=== PATIENT | female | born 1985 | race Caucasian/White ===

== ENCOUNTER 2016-04-25 16:10 | Inpatient (IN) | payer BC, OTHER ==
[~2016-04-25 16:10] MED LIST: AMOX500T PO; MMW SWISH-SWAL; PRENTAB62 PO
--- NOTE | 2016-05-25 11:57 | MH ---
cc: THADDEUS ALVAREZ DATE OF ADMISSION: 05/26/2016 ADMITTING DIAGNOSIS: 1. Term 2. Previous x3, low transverse type. 3. Maternal obesity 4. Multiparity. HISTORY OF PRESENT ILLNESS The patient is a 31-year-old white female para 3-0-0-3, LMP of 08/27/2015, EDC of 06/02/2016. Her preop course has been benign. Her past history is notable for three previous C-sections. She is now admitted for repeat with bilateral tubal interruption for undesired future fertility. PAST SURGICAL HISTORY: 1984, PE tubes. MEDICATIONS: Vitamins. ALLERGIES: NONE. TRANSFUSIONS: None. SOCIAL HISTORY: She is , homemaker, former teacher. Alcohol, tobacco and drugs: None. PHYSICAL EXAMINATION: Vital signs: Stable. Weight 300 pounds. Height is 5'6". HEENT: Normal. CHEST: Clear. HEART: Regular rate. BREASTS: Symmetrical. ABDOMEN: Gravid. EFW is 4000 grams. Cervix is closed. Rectal: Negative. ASSESSMENT: As above. PLAN: She is now admitted for , with bilateral tubal interruption. While in the office I explained the procedures, the risks, benefits, complications including but not limited to infection, bleeding and failure of the tubal. I advised her the tubal is permanent, non-reversal with small risk of failure. Ultrasound on 04/25/2016 showed vertex presentation, normal fluid, anterior placenta, female, GBS culture is positive. MD JANINE Caballero/LETI /11:14 AM /11:33 AM
[2016-05-26] VITALS (10 sets, daily range): BP systolic 92–126; BP diastolic 52–71; PULSE 20–97; RESP 16–20; TEMP 97.6–98.6
[2016-05-26] MEDS ORDERED: ceFAZolin INJ 1,000 MG VIAL ONE ×2 (06:56→06:57)
[2016-05-26] MEDS ORDERED: OXYTOCIN 10 UNIT/ML AMP ONE (06:57)
[2016-05-26 07:00] LABS: HEMATOCRIT 32.5 % (35.0-46.0); MEAN CELL VOLUME 80.5 FL (80.0-100.0); MEAN CORPUSCULAR HEMOGLOBIN 26.4 PG (27.0-34.0); MEAN CORPUSCULAR HGB CONC 32.9 % (32.0-36.0); PLATELET COUNT 186 TH/MM3 (150-450); RED BLOOD COUNT 4.03 MIL/MM3 (4.00-5.30); RED CELL DISTRIBUTION WIDTH 15.6 % (11.6-17.2); REVIEW FLAG FINAL; WHITE BLOOD COUNT 11.3 TH/MM3 (4.0-11.0)
[2016-05-26] MEDS ORDERED: CITRIC ACID-SODIUM CITRATE LIQ 30 ML UDC ONE (07:00)
[2016-05-26] MEDS ORDERED: CITRIC ACID-SODIUM CITRATE LIQ 30 ML UDC PO SCH (07:15)
[2016-05-26] MEDS: LACTATED RINGER'S 1000 ML IV SCH (07:15)
[2016-05-26] MEDS ORDERED: LACTATED RINGER'S 1000 ML IV ONE (07:15)
[2016-05-26 07:17] LABS: BACTERIA, URINE MOD /hpf; BLOOD, URINE NEG (NEG); CALCIUM OXALATE CRYSTALS,URINE MANY /hpf; COMMENT (UR) CULTURE INDICATED; CULTURE IF INDICATED CULTURE INDICATED; GLUCOSE,URINE NEG (NEG); KETONE, URINE 10 mg/dL (NEG); MUCUS URINE MANY /lpf (OCC); NITRITE,URINE NEG (NEG); SQUAMOUS EPITHELIAL CELL URINE 15 /hpf (0-5); URINE COLOR YELLOW (YELLW/STRAW)
[2016-05-26] MEDS ORDERED: DEXAMETHASONE SOD PHOS 4 MG/ML VIAL IV ONE (08:00)
[2016-05-26] MEDS ORDERED: MORPHINE SULFATE PF 5 MG/10 ML VIAL ONE (08:43)
[2016-05-26] MEDS ORDERED: fentaNYL CITRATE 250 MCG/5 ML AMP ONE (08:43)
[2016-05-26] MEDS ORDERED: KETOROLAC TROMETHAMINE 60 MG/2 ML (IM) VIAL IM PRN ×2 (08:45)
[2016-05-26] MEDS ORDERED: oxyCODONE/ACETAMINOPHEN 5 MG/325 MG TAB PO PRN (08:45)
[2016-05-26] MEDS ORDERED: OXYTOCIN 30 UNITS-500ML PREMIX 500 ML IV ONE (08:45)
[2016-05-26] MEDS ORDERED: ZOLPIDEM TARTRATE 5 MG TAB PO PRN (08:45)
[2016-05-26] MEDS ORDERED: MEASLES, MUMPS, RUBELLA VACCINE 0.5 ML VIAL SQ ONE (08:45)
[2016-05-26] MEDS ORDERED: SODIUM CHLORIDE 0.9% FLUSH 5 ML FLUSH IV PRN (08:45)
[2016-05-26] MEDS ORDERED: ONDANSETRON HCL 4 MG/2 ML VIAL IVP PRN (08:45)
[2016-05-26] MEDS ORDERED: SIMETHICONE 80 MG CHEWABLE TAB PO PRN (08:45)
[2016-05-26] MEDS: SODIUM CHLORIDE 0.9% FLUSH 5 ML FLUSH IV SCH (09:00)
[2016-05-26] MEDS ORDERED: ACETAMINOPHEN 1000 MG/100 ML VIAL IV ONE (09:09)
[2016-05-26] MEDS ORDERED: OXYTOCIN 30 UNITS-500ML PREMIX 500 ML ONE (09:09)
[2016-05-26] MEDS: ACETAMINOPHEN 1000 MG/100 ML VIAL IV SCH ×2 (09:11→16:13)
[2016-05-26] MEDS ORDERED: KETOROLAC TROMETHAMINE 60 MG/2 ML (IM) VIAL IM ONE (09:17)
[2016-05-26] MEDS ORDERED: EPIDURAL-NO SYSTEMIC NARCOTICS XX PRN (10:30)
[2016-05-26] MEDS ORDERED: EPIDURAL-DIPHENHYDRAMINE HCL 50 MG CAP PO PRN (10:30)
[2016-05-26] MEDS ORDERED: EPIDURAL-DIPHENHYDRAMINE HCL 50 MG/ML VIAL IV PUSH PRN (10:30)
[2016-05-26] MEDS ORDERED: EPIDURAL-DO NOT ADMINISTER ANTICOAGULANTS XX PRN (10:30)
[2016-05-26] MEDS ORDERED: EPIDURAL-NALOXONE HCL 0.4 MG/ML AMP IV PRN (10:30)
[2016-05-26] MEDS ORDERED: LACTATED RINGER'S 1000 ML INJ 1,000 ML IV SCH (13:00)
[2016-05-26] MEDS ORDERED: OXYTOCIN 30 UNITS-500ML PREMIX 500 ML IV PRN (18:15)
[2016-05-27] MEDS: ACETAMINOPHEN 1000 MG/100 ML VIAL IV SCH (00:52)
[2016-05-27] MEDS: LACTATED RINGER'S 1000 ML IV SCH (03:17)
[2016-05-27] MEDS: IBUPROFEN 600 MG TAB PO PRN ×3 (03:28→17:24)
[2016-05-27] MEDS: oxyCODONE/ACETAMINOPHEN 5 MG/325 MG TAB PO PRN ×5 (05:16→21:42)
[2016-05-27 06:19] LABS: AUTOMATED NEUTROPHIL # 7.9 TH/MM3 (1.8-7.7); BASOPHIL # 0.1 TH/MM3 (0-0.2); BASOPHIL % 0.6 % (0.0-2.0); EOSINOPHIL # 0.1 TH/MM3 (0-0.4); HEMATOCRIT 26.2 % (35.0-46.0); HEMO FLAGS DIFF FINAL; LYMPH % 13.3 % (9.0-44.0); LYMPHOCYTE # 1.4 TH/MM3 (1.0-4.8); MEAN CELL VOLUME 81.2 FL (80.0-100.0); MEAN CORPUSCULAR HEMOGLOBIN 27.3 PG (27.0-34.0); MEAN CORPUSCULAR HGB CONC 33.7 % (32.0-36.0); MONO % 7.9 % (0.0-8.0); NEUT % 77.2 % (16.0-70.0); PLATELET COUNT 150 TH/MM3 (150-450); RED BLOOD COUNT 3.22 MIL/MM3 (4.00-5.30); RED CELL DISTRIBUTION WIDTH 15.1 % (11.6-17.2); WHITE BLOOD COUNT 10.3 TH/MM3 (4.0-11.0)
[2016-05-27 06:50] LABS: BICARBONATE 23.5 MEQ/L (21.0-32.0); POTASSIUM 3.7 MEQ/L (3.5-5.1)
[2016-05-27 08:02] VITALS: BP 114/80; PULSE 102; RESP 16; TEMP 98.4
[2016-05-27] MEDS: DOCUSATE SODIUM 50 MG/SENNA 8.6 MG TAB PO PRN ×2 (09:54→21:41)
[2016-05-27 20:50] VITALS: BP 123/65; PULSE 101; RESP 16; TEMP 98.8
[2016-05-28] MEDS: IBUPROFEN 600 MG TAB PO PRN ×3 (02:11→18:10)
[2016-05-28] MEDS: oxyCODONE/ACETAMINOPHEN 5 MG/325 MG TAB PO PRN ×6 (02:12→22:04)
[2016-05-28 08:06] VITALS: BP 126/71; PULSE 101; RESP 20; TEMP 98.1
[2016-05-28] MEDS: SODIUM CHLORIDE 0.9% FLUSH 5 ML FLUSH IV SCH ×2 (09:00→21:00)
[2016-05-28] MEDS ORDERED: DIPHTH/TETANUS/ACEL PERTUSSIS (BOOSTER) 0.5 ML VIAL/PFS IM ONE (09:00)
--- NOTE | 2016-05-28 09:52 | MP ---
cc: THADDEUS ALVAREZ DATE OF SURGERY 05/26/16 PREOPERATIVE DIAGNOSIS 1. Term 2. Previous x3 3. Multiparity. 4. Obesity. POSTOPERATIVE DIAGNOSIS 1. Term 2. Previous x3 3. Multiparity. 4. Obesity. 5. Delivery. PROCEDURE Repeat low transverse section and bilateral tubal interruption. ANESTHESIA Spinal SURGEON Israel Alvarez MD PRESS CATCHER Gayatri Genao. ESTIMATED BLOOD LOSS About 500 mL FLUIDS 1.3 liter crystalloid. OBJECTIVE FINDINGS Following induction of adequate spinal anesthesia, the patient was prepped and draped supine on the operating table left lateral tilt position usual sterile fashion with the bladder being drained via Beckwith catheterization. The abdomen was opened through a Pfannenstiel incision using a knife to excise her old scar. The fascia opened transversely stripped from the muscles. Rectus muscle split in the midline and the peritoneum opened sharply without incident. The bladder flap was taken down sharply and retracted with a Amanda blade. The lower uterine segment was incised transversely with a knife and extended with blunt dissection. The membranes were ruptured with clear fluid. Baby was in LOT position. Vacuum was applied to the occiput and used to lift the head through the abdominal wound. Mouth was suctioned, cord clamped, cut after releasing the double nuchal cord which was loose. Cord sent for typing and sent out for donation and uterine cavity cleaned with laps. Uterus exteriorized and closed with two layers of running suture, first with a with running locking stitch of 0 Vicryl, second running with imbricating stitch of 0 Vicryl. The patient reaffirmed desired tubal. Uterine was packed with a lap. Left fallopian tube was traced to normal left ovary. A window made in mesosalpinx. The vascular pedicle of the fimbriae doubly clamped with Concha's proximal to the hemostat. The distal tube fimbriae excised for permanent study. The vascular pedicle , was ligated with two free ties of 2-0 chromic. The proximal tube ligated with 2-0 chromic and buried in the uterine fundus in Hugo fashion with a second suture used to further affix the tube to the uterine fundus, same on the right. Posterior inspection was normal. The uterus placed back in cavity. Irrigation was performed, no bleeding was evident. The bladder flaps were closed with running stitch of 3-0 Vicryl. All instruments removed. Counts were correct. The anterior peritoneum closed with running stitch of 2-0 Vicryl. Fascia closed with running #1 PDS corner to midline and tied, subcu with 3-0 Vicryl and skin with running subcuticular 3-0 Monocryl. Dermabond applied. All counts correct and the patient was awaken and taken to recovery room in good condition. MD JANINE Caballero/ /8:21 AM /9:32 AM [email or web address]
[2016-05-28] MEDS: DOCUSATE SODIUM 50 MG/SENNA 8.6 MG TAB PO PRN (10:05)
[2016-05-28] MEDS: LACTATED RINGER'S 1000 ML IV SCH (19:15)
[2016-05-28 20:44] VITALS: BP 132/73; PULSE 94; RESP 18; TEMP 98.3
[2016-05-29] MEDS: LACTATED RINGER'S 1000 ML IV SCH ×2 (01:55→08:35)
[2016-05-29] MEDS: IBUPROFEN 600 MG TAB PO PRN ×2 (02:37→10:55)
[2016-05-29] MEDS: DOCUSATE SODIUM 50 MG/SENNA 8.6 MG TAB PO PRN (02:37)
[2016-05-29] MEDS: oxyCODONE/ACETAMINOPHEN 5 MG/325 MG TAB PO PRN ×3 (02:38→10:56)
[2016-05-29] MEDS ORDERED: OXYC1TAB63 PO (07:51)
--- NOTE | 2016-05-29 07:52 | HHI.DCPOC ---
Discharge Care Plan Report Symptoms to Your Doctor -Temperate above 100.5 degrees -Redness, of incision or excessive or foul smelling drainage -Unusual pain or calf pain -Increased vaginal bleeding -Painful or difficulty urinating -Feelings of extreme sadness or anxiety after 2 weeks Goals to Promote Your Health * To prevent worsening of your condition and complications * To maintain your health at the optimal level Directions to Meet Your Goals Take your medications as prescribed Follow your dietary instruction Follow activity as directed Ensure plenty of rest for recovery Drink fluids for hydration Keep your appointments as scheduled Take your immunizations and boosters as scheduled If your symptoms worsen call your PCP, if no PCP go to Urgent Care Center or Emergency Room Smoking is Dangerous to Your Health. Avoid second hand smoke Call the 24-hour crisis hotline for domestic abuse at Jerzy Ly MD May 29, 2016 07:52
[2016-05-29 08:05] VITALS: BP 110/79; PULSE 93; RESP 19; TEMP 98.8
[2016-05-29] MEDS: SODIUM CHLORIDE 0.9% FLUSH 5 ML FLUSH IV SCH (09:00)
--- NOTE | 2016-06-01 21:43 | MD ---
cc: THADDEUS ALVAREZ ADMISSION DATE: 05/26/2016 DISCHARGE DATE: 05/29/2016 ADMISSION DIAGNOSES Term , previous x3, multiparity, obesity. DISCHARGE DIAGNOSES Term , previous x3, multiparity, obesity. Delivered. PROCEDURE Repeat low transverse section and bilateral tubal interruption on 05/26/2016. HISTORY OF PRESENT ILLNESS The patient is a 41-year-old , white female para 3-0-0-3 with an EDC of 06/03/2016 by dates and ultrasound. Her course was benign. Her past medical history notable for three previous C-sections and maternal obesity. Her labs included Rh negative, VDRL nonreactive, rubella immune, rubeola immune, WRIGHT negative, Pap negative, glucose screen was normal. Strep culture was positive. On the day admission she underwent a repeat section and bilateral tubal interruption with delivery of a viable vigorous female, Apgars were 8 and 9, 8 pounds, 13 ounces. The baby was named Etelvina and she was breast feeding. did well, discharged home in excellent condition on 05/29/2016. Her pre and postop labs were normal. The baby is Rh negative so RhoGAM is indicated. She will return to see me in one week. She will call for any abnormal symptoms. She was given a prescription for Percocet 5, one to two p.o. q.4h as needed for pain, #60. MD JANINE Caballero/KK /8:06 AM /9:33 PM
== END 2016-05-29 12:17 | disposition home or self-care (01) | DRG 766 ==
LOC: H2EB 05-26 05:34 → H1EA 05-26 10:01
PROVIDERS: ADMIT Obstetrics & Gynecology; ATTEND Obstetrics & Gynecology
PROC: 10D00Z1 Extraction of Products of Conception, Low, Open Approach (ICD-10-PCS; principal; 2016-05-26)
PROC: 0UL70ZZ Occlusion of Bilateral Fallopian Tubes, Open Approach (ICD-10-PCS; 2016-05-26)
DX: O34.211 Maternal care for low transverse scar from previous cesarean delivery (principal); E66.9 Obesity, unspecified; O99.214 Obesity complicating childbirth; O99.824 Streptococcus B carrier state complicating childbirth; Z37.0 Single live birth; Z3A.37 37 weeks gestation of pregnancy; O69.81X0 Labor and delivery complicated by cord around neck, without compression, not applicable or unspecified; Z30.2 Encounter for sterilization
CPT/HCPCS: 59025; 80048; 81001; 85025; 85027; 86850; 86900; 86901; 87086; 88302; 90715; J0131; J0690; J1100; J1885; J2274; J2590; J3010; J7120

== ENCOUNTER → 2016-12-23 | Outpatient (CLI) | payer BC ==
[~2016-12-23] MED LIST changes: -AMOX500T PO; -MMW SWISH-SWAL; +OXYC1TAB63 PO
== END ==
LOC: CPRE 12:45
PROVIDERS: ATTEND Obstetrics & Gynecology
DX: N92.0 Excessive and frequent menstruation with regular cycle (principal)

== ENCOUNTER → 2016-12-29 | Day surgery (SDC) | payer BC ==
[~2016-12-29] VITALS: Ht 167.6 cm; Wt 139.1 kg
[~2016-12-29] MED LIST changes: +*morphine SULFATE 8 MG/ML PERIprocedure ONLY ONE; +ACETAMINOPHEN 1 GM/100 ML IV SCH; +CHLORHEXIDINE GLUCONATE 2 % 1 PACK (2 CLOTHS) TOPICAL PRN; +DEXAMETHASONE SOD PHOS 4 MG/ML VIAL ONE; +DO NOT ADM ANY ANTICOAGULANT DRUGS PRN; +FAMOTIDINE 20 MG/2 ML VIAL ONE; +INSULIN HUMAN REGULAR 1,000 UNITS/10 ML VIAL SQ PRN; +KETOROLAC TROMETHAMINE 30 MG/ML (IVP) VIAL IV PUSH ONE; +LACTATED RINGER'S 1000 ML IV PRN; +LIDOCAINE HCL 1% PF 5 ML AMPULE OTHER ONE; +METOCLOPRAMIDE HCL 10 MG/2 ML VIAL IV PRN; +METOPROLOL TARTRATE 25 MG TAB PO PRN; +MIDAZOLAM HCL 2 MG/2 ML VIAL ONE; +ONDANSETRON HCL 4 MG/2 ML VIAL IV PUSH ONE; -OXYC1TAB63 PO; +POVIDONE IODINE 5% (ANTISEPSIS KIT) 4 APPLICATIONS EACH NARE PRN; -PRENTAB62 PO; +PROPOFOL 200 MG/20 ML AMP IV ONE; +SODIUM CHLORID 0.9% 500 ML IV PRN; +ceFAZolin 1,000 MG/NS 100 ML IV SCH; +oxyCODONE/ACETAMINOPHEN 5 MG/325 MG TAB PO PRN
--- NOTE | 2016-12-29 08:20 | MP ---
cc: THADDEUS ALVAREZ DATE OF SURGERY 12/29/2016 PREOPERATIVE DIAGNOSIS Menorrhagia. POSTOPERATIVE DIAGNOSIS Menorrhagia. PROCEDURE Hysteroscopy with NovaSure ablation. ANESTHESIA General LMA. ESTIMATED BLOOD LOSS About 20 cc FLUIDS 0.5 liter crystalloid. OBJECTIVE FINDINGS Following the induction of adequate general LMA anesthesia, the patient was prepped and draped supine on the operating table in the dorsal lithotomy position in the usual sterile fashion with the bladder drained with in and out catheterization. Exam under anesthesia revealed normal sized and shape anterior uterus, no adnexal masses. A heavy weighted speculum was placed in the posterior fornix of the vagina, the anterior lip of the cervix was grasped with single-tooth tenaculum. The cervix sounded to 2.5 cm internal os and 9 cm to the fundus. The cervix was dilated to a #20 Hanks dilator. The NovaSure wand was then deployed for a cavity length was 6.5 cm and a cavity width of 3 cm. With the patient in the Trendelenburg position, the device cavity check was normal, enabled and complete. The NovaSure wand was removed intact. The hysteroscope was passed and revealed a completed procedure. The instruments are now removed, tenaculum site sutured with 3-0 chromic and good hemostasis. All counts were correct. The patient was taken down from the stirrups; she was awakened and taken to the recovery room in good condition. MD JANINE Caballero/SSB /8:07 AM /8:11 AM
[2016-12-29 09:35] VITALS: BP 121/69; PULSE 52; RESP 20; TEMP 97.5; O2SAT 98
--- NOTE | 2016-12-29 13:50 | EKG ---
Date Performed: 12/29/2016 Time Performed: 06:16:40 PTAGE: 31 years EKG: Sinus rhythm . Normal ECG NO PREVIOUS TRACING DOCTOR: Jeanmarie Mcgovern Interpretating Date/Time 12/29/2016 13:47:44
--- NOTE | 2016-12-30 08:38 | MH ---
cc: THADDEUS ALVAREZ M.D. DATE OF ADMISSION 12/29/2016 This is a re-dictation the patient date of admission is 12/29/2016. DIAGNOSIS Menorrhagia HISTORY OF PRESENT ILLNESS This is a 31-year-old white female para 4-0-0-4 has had persistent vaginal bleeding since her last in May of 2016. Her laboratory studies have been normal. Pap smear was normal. Endometrial biopsy was benign. Ultrasound was normal. She is now admitted for ablation. PAST MEDICAL HISTORY Previous surgery: 1. She had four C-sections, the last with a tubal in May of 2016. 2. She had PE tubes in 1984. MEDICATIONS Vitamins ALLERGIES None TRANSFUSIONS None SOCIAL HISTORY She is , a homemaker. Alcohol, tobacco and drugs are none. FAMILY HISTORY Noncontributory PHYSICAL EXAM This is an elderly white female in no distress. VITAL SIGNS: Her vital signs are stable. HEENT: Exam is normal. CHEST: Clear. HEART: Regular rate. BREASTS: The breasts are symmetrical. ABDOMEN: Benign. PELVIC: Normal external genitalia and BUS. Vagina is normal. Cervix normal. Uterus is normal size and shape. Adnexa nonpalpable. ASSESSMENT As above. PLAN She is now admitted for ablation. While in the office, I explained the procedures, the risks, benefits, and complications, and the chance of failure and possible need for hysterectomy is explained and accepted. The patient would like to proceed. MD JANINE Caballero/ROBERT /8:24 AM /8:31 AM
== END | disposition home or self-care (01) ==
LOC: HSDC 05:30
PROVIDERS: ATTEND Obstetrics & Gynecology
DX: N92.0 Excessive and frequent menstruation with regular cycle (principal); E66.9 Obesity, unspecified; Z68.42 Body mass index [BMI] 45.0-49.9, adult; Z01.810 Encounter for preprocedural cardiovascular examination
CPT/HCPCS: 00952; 58563; 93005; 94002; J0131; J0690; J1100; J1885; J2250; J2270; J2405; J3010; J7120

== ENCOUNTER 2017-11-25 10:39 | Observation (INO) ==
--- NOTE | 2017-11-24 12:58 | MH ---
cc: Jerzy Ly MD DATE OF ADMISSION: 11/24/2017 ADMITTING DIAGNOSES: 1. Menorrhagia. 2. Dysmenorrhea. HISTORY OF PRESENT ILLNESS: The patient is a 32-year-old white female, para 4-0-0-4, has had persistent vaginal bleeding since her last in 05/2016. Her Pap smears were normal. Endometrial biopsy was normal. Ultrasound was normal. She had NovaSure ablation on 12/29/2016, has continued to bleed heavily, has failed to respond to OCPs. Her pelvic ultrasound from 08/03/2017 showed a fundal fibroid and the ovaries are normal. She is now admitted for hysterectomy. ADDITIONAL PAST SURGICAL HISTORY: She had 4 C-sections, the last with a tubal in 05/2016. She had PE tubes in 1984. MEDICATIONS: Vitamins and OCPs. ALLERGIES: NONE. TRANSFUSIONS: None. SOCIAL HISTORY: She is , homemaker. Alcohol, tobacco, and drugs are none. FAMILY HISTORY: Noncontributory. PHYSICAL EXAMINATION: GENERAL: A well-nourished, well-developed white female in distress. VITAL SIGNS: Stable. Her weight is approximately 203 pounds. HEENT: Normal. CHEST: Clear. HEART: Regular rate. BREASTS: Symmetrical. ABDOMEN: Benign. PELVIC: BUS is normal. Cervix normal. Uterus enlarged to 12-week size. Adnexa nonpalpable. ASSESSMENT AND PLAN: As above. She is now being admitted for a laparoscopy with a planned LASH BS and possible PIERRE BS. While in the office, the risks and benefits and complications explained and accepted. MD JANINE Caballero/lucita , 12:30 PM , 12:37 PM
[2017-11-25] MEDS ORDERED: Metoprolol Tartrate 25 MG Tablet PO SCH (11:45)
[2017-11-25] MEDS ORDERED: Chlorhexidine Gluconate 2% 1 Pack (2 Cloths) TOPICAL SCH (11:45)
[2017-11-25] MEDS ORDERED: ceFAZolin 2 GM Premix Inj 2 GM/100 ML BAG IV.SIG ONE (11:57)
[2017-11-25] MEDS ORDERED: ceFAZolin 2 GM/NS 100 ML IV; Q8H IV.SIG ONE ×2 (12:00)
[2017-11-25] MEDS ORDERED: Neostigmine Inj 5 MG/5 ML Syringe IV.PUSH ONE (12:00)
[2017-11-25] MEDS ORDERED: Lidocaine PF 1% Inj 5 ML Syringe INFILTRATN ONE (12:00)
[2017-11-25] MEDS ORDERED: Ketorolac Inj 30 MG/ML (IVP) Vial IV.PUSH ONE (12:00)
[2017-11-25] MEDS ORDERED: Glycopyrrolate Inj 1 MG/5 ML Syringe IV.PUSH ONE (12:00)
[2017-11-25] MEDS ORDERED: Sodium Chlor 0.9% Inj 500 ML IV.SIG SCH (12:00)
[2017-11-25] MEDS ORDERED: fentaNYL Citrate Inj 100 MCG/2 ML Ampul ONE (12:17)
[2017-11-25] MEDS ORDERED: Famotidine PF Inj 20 MG/2 ML Vial ONE (12:17)
[2017-11-25] MEDS ORDERED: Ketamine Inj 50 MG/5 ML Syringe IV.PUSH ONE (12:18)
[2017-11-25] MEDS ORDERED: Bupivacaine PF 0.5% Inj 30 ML Vial ONE (14:11)
[2017-11-25] MEDS ORDERED: Bupivacaine Liposomal PF 1.3% Inj 20 ML Vial ONE (14:11)
[2017-11-25] MEDS ORDERED: HYDROmorphone PF Inj 2 MG/ML Vial IV.PUSH PRN (14:12)
--- NOTE | 2017-11-25 14:53 | MP ---
cc: Jerzy Ly MD DATE OF OPERATION: 11/25/2017 PREOPERATIVE DIAGNOSES: 1. Menorrhagia. 2. Dysmenorrhea. 3. Uterine fibroids. POSTOPERATIVE DIAGNOSES: 1. Menorrhagia. 2. Dysmenorrhea. 3. Uterine fibroids. PROCEDURE PERFORMED: LASH with bilateral salpingectomy. ANESTHESIA: General, ET. SURGEON: Jerzy Ly MD ELECTRIC GOLF CART REPAIRER: PHILLY Cheney ESTIMATED BLOOD LOSS: About 200 mL. FLUIDS: 1 liter crystalloid. OBJECTIVE FINDINGS: Following induction of adequate general endotracheal anesthesia, the patient was prepped and draped supine on the operating table in a sterile fashion with the bladder being drained via Beckwith catheterization. The abdomen was opened through a 3 cm curved infraumbilical incision using knife to cut down through the skin of the fascia. The fascia opened transversely, the muscle was in the midline and the peritoneum opened sharply without incident. The GelPort was placed, laparoscope inserted. A 5 port placed in the left lower quadrant and the AirSeal right lower quadrant. Uterus about 12-week size, enlarged with fibroids and probable adenomyosis. Ovaries were normal, follicular cyst on the left, tubes with interruption. [place] were clear. Liver edge was normal. Working first on the left, Harmonic scalpel was used to take to the left mesosalpinx, left round ligament, left broad ligament, left bladder flap, and left uterine vessels and the same on the right. Harmonic scalpel was now used to amputate the fundus from the cervix. The fundus and tubes placed in the bag and extracted through the GelPort. Irrigation performed. There was no bleeding. LOw pressure test there was no bleeding. Ureters inspected, good peristalsis and and the GelPort was now removed and the peritoneum sutured with a running stitch of 2-0 Vicryl, the fascia with a running locking stitch of 0 Vicryl, corner to midline and tied, subcutaneous with running 3-0 Vicryl, skin with running subcuticular 3-0 Monocryl. The scope was now reinserted through the lower ports, used to inspect the GelPort site, which was well closed. No entrapment. Pelvis inspected. There was no bleeding. The scope was now removed. Gas allowed to escape. The small ports were removed, sutured with 3-0 Monocryl. Dermabond applied. Counts were correct. The patient was now to receive tap block anesthesia, then will go to recovery. MD JANINE Caballero/jason/oziel , 02:20 PM , 02:26 PM KARI
[2017-11-25] MEDS ORDERED: *morphine SULFATE 4 MG/ML PERIprocedure ONLY ONE ×3 (15:00→15:28)
[2017-11-25] MEDS ORDERED: *Ondansetron Inj 4 MG/2 ML Vial PERIprocedural Use ONLY ONE (15:02)
[2017-11-25] MEDS: Ketorolac Inj 30 MG/ML (IVP) Vial IV.PUSH SCH (17:31)
[2017-11-25] MEDS ORDERED: Zolpidem Tartrate 5 MG Tablet PO PRN (21:00)
[2017-11-25 21:13] LABS: Hematocrit 37.7 % (35.0-46.0); Hemoglobin 12.4 gm/dL (11.6-15.3); Mean Corpuscular Volume 87.9 fL (80.0-100.0); Platelet Count 258 th/mm3 (150-450); Red Blood Count 4.29 mil/mm3 (4.00-5.30); Red Cell Distribution Width 13.4 % (11.6-17.2); White Blood Count 10.6 th/mm3 (4.0-11.0)
[2017-11-26] MEDS: Ketorolac Inj 30 MG/ML (IVP) Vial IV.PUSH SCH ×2 (00:33→05:39)
[2017-11-26 06:01] LABS: Baso # (Auto) 0.1 th/mm3 (0.0-0.2); Baso % (Auto) 0.5 % (0.0-2.0); Eos % (Auto) 0.2 % (0.0-4.0); Hematocrit 34.4 % (35.0-46.0); Hemoglobin 11.4 gm/dL (11.6-15.3); Lymph # (Auto) 1.2 th/mm3 (1.0-4.8); Lymph % (Auto) 10.9 % (9.0-44.0); Mean Corpuscular Hemoglobin 29.1 pg (27.0-34.0); Mean Corpuscular Volume 88.3 fL (80.0-100.0); Mono # (Auto) 0.7 th/mm3 (0.0-0.9); Mono % (Auto) 5.9 % (0.0-8.0); Neut # (Auto) 9.2 th/mm3 (1.8-7.7); Neut % (Auto) 82.5 % (16.0-70.0); Platelet Count 247 th/mm3 (150-450); Red Cell Distribution Width 13.3 % (11.6-17.2); White Blood Count 11.2 th/mm3 (4.0-11.0)
[2017-11-26 06:23] LABS: Anion Gap 9 meq/L (5-15); Blood Urea Nitrogen 7 mg/dL (7-18); Calcium 8.1 mg/dL (8.5-10.1); Carbon Dioxide 22.9 meq/L (21.0-32.0); Chloride 107 meq/L (98-107); Glomerular Filtration Rate Greater Than 89 mL/min (>89); Glucose,Random 109 mg/dL (74-106); Potassium 4.1 meq/L (3.5-5.1); Sodium 139 meq/L (136-145)
[2017-11-26] MEDS ORDERED: Simethicone 80 MG Chew Tablet PO PRN (09:25)
[2017-11-26 09:40] VITALS: BP 107/50; PULSE 60; RESP 20; TEMP 98.1; O2SAT 100
== END 2017-11-26 11:37 | disposition home or self-care (01) ==
LOC: HOR 10:39 → HSDI 10:39 → H1EA 10:39
PROVIDERS: ADMIT Obstetrics & Gynecology; ATTEND Obstetrics & Gynecology
PROC: LAPLASH (ICD-10-PCS; 2017-11-25 12:45)